=== PATIENT | female | born 1955 | race Caucasian/White ===

== ENCOUNTER 2016-10-08 22:37 | Observation (INO) | payer BC ==
[~2016-10-08] VITALS: Ht 157.5 cm; Wt 52.6 kg
[2016-10-08] MEDS ORDERED: MAGNEVIST 15ML IV ONE (22:39)
[2016-10-09] MEDS ORDERED: ASPIRIN 81 MG CHEW TAB ONE (03:48)
[2016-10-09 05:00] VITALS: BP_SYST 164; RESP 20; TEMP 97.8; Ht 157.5 cm; Wt 52.6 kg
[2016-10-09] MEDS ORDERED: GLUCAGON 1 MG VIAL IM PRN (05:30)
[2016-10-09] MEDS ORDERED: DEXTROSE 50% SYRINGE 50 ML IV PRN (05:30)
[2016-10-09] MEDS ORDERED: SALINE FLUSH 10 ML FLUSH PRN (05:30)
[2016-10-09] MEDS ORDERED: SODIUM CHLORIDE 0.9% FLUSH BAG 500 ML IV SCH (06:00)
[2016-10-09 07:31] VITALS: BP_SYST 160; RESP 16; TEMP 98.2
[2016-10-09] MEDS ORDERED: SALINE FLUSH 10 ML FLUSH SCH (08:00)
[2016-10-09] MEDS ORDERED: Aspirin 325 MG TAB PO SCH (09:00)
[2016-10-09] MEDS: ACETAMINOPHEN 325 MG TAB PO PRN ×2 (09:16→15:54)
[2016-10-09 11:24] VITALS: BP_SYST 156; RESP 20; TEMP 97.9
[2016-10-09] MEDS ORDERED: KCL CR 20 MEQ TAB PO ONE (12:30)
[2016-10-09] MEDS ORDERED: LORAZEPAM 0.5 MG TAB PO PRN (12:30)
[2016-10-09] MEDS ORDERED: HCTZ 25 MG TAB PO SCH (12:30)
[2016-10-09] MEDS ORDERED: MISSING DOSE XX ONE (13:30)
[2016-10-09 15:50] VITALS: BP_SYST 118; RESP 16; TEMP 98.3
[2016-10-09 16:20] VITALS: BP_SYST 118; RESP 16; TEMP 98.3
[2016-10-09] MEDS ORDERED: LISINOPRIL 20 MG TAB PO SCH (21:00)
[2016-10-09] MEDS ORDERED: Atorvastatin 20 MG TAB PO SCH (21:00)
== END 2016-10-09 16:04 | disposition home or self-care (01) ==
LOC: ENRESERVTM → ENRESERVDT → ER 22:37 → ENPENDDIS 22:38 → EMR 22:38 → PCU2 10-09 05:05
PROVIDERS: ADMIT Internal Medicine; ATTEND Internal Medicine
DX: R20.0 Anesthesia of skin (principal); I69.354 Hemiplegia and hemiparesis following cerebral infarction affecting left non-dominant side; I10 Essential (primary) hypertension; E11.9 Type 2 diabetes mellitus without complications; F41.9 Anxiety disorder, unspecified; E87.6 Hypokalemia; E78.5 Hyperlipidemia, unspecified; Z79.82 Long term (current) use of aspirin; Z79.84 Long term (current) use of oral hypoglycemic drugs; Z79.02 Long term (current) use of antithrombotics/antiplatelets
CPT/HCPCS: 36415; 70450; 70544; 70548; 70553; 71010; 80053; 80061; 81001; 82553; 82947; 84484; 85025; 85384; 85610; 85730; 87088; 93005; 93306; 99220